=== PATIENT | male | born 1975 | race Caucasian/White ===

== ENCOUNTER → 2017-12-10 | Outpatient (CLI) | payer BC ==
[2015-07-14 08:27] VITALS: BP 139/92
[~2017-12-10] MED LIST: CYMBALTA20 MG; DILAUDID4 M1 PO; LAMICTAL; MS CONTIN 330 MG/TAB PO
[2017-12-10 17:22] LABS: HEMATOCRIT 45.2 % (42.0-52.0); HEMOGLOBIN 14.6 g/dL (13.5-18.0); MEAN PLATELET VOLUME 11.6 fl (7.4-10.4); RED BLOOD COUNT 4.99 M/mm3 (4.20-5.60); RED CELL DISTRIBUTION WIDTH 13.2 % (11.5-14.5); WHITE BLOOD COUNT 8.8 K/mm3 (4.8-10.8)
[2017-12-10 20:38] LABS: ALBUMIN 3.6 g/dL (3.5-5.0); BUN/CREATININE RATIO 21.8 (6.0-26.0); CALCIUM 8.4 mg/dL (8.4-10.2); POTASSIUM 3.7 mmol/L (3.6-5.0); TOTAL BILIRUBIN 0.3 mg/dL (0.2-1.3); TOTAL PROTEIN 7.7 g/dL (6.3-8.2)
== END ==
LOC: LAB 16:56
PROVIDERS: Family Medicine
DX: R06.00 Dyspnea, unspecified (principal); H93.8X3 Other specified disorders of ear, bilateral; R53.83 Other fatigue; M16.12 Unilateral primary osteoarthritis, left hip; Z86.39 Personal history of other endocrine, nutritional and metabolic disease

== ENCOUNTER → 2018-07-24 | Outpatient (CLI) | payer BC ==
[2015-07-14 08:27] VITALS: BP 139/92
== END ==
LOC: RAD 11:02
DX: N20.2 Calculus of kidney with calculus of ureter (principal); K76.0 Fatty (change of) liver, not elsewhere classified

== ENCOUNTER → 2018-08-05 | Outpatient (CLI) | payer BC ==
[2015-07-14 08:27] VITALS: BP 139/92
[2018-08-05 10:38] LABS: CALCIUM 8.7 mg/dL (8.4-10.2); POTASSIUM 3.9 mmol/L (3.6-5.0)
[2018-08-07 13:03] LABS: PTH,INTACT 60.4 pg/mL (6.6-88.9)
== END ==
LOC: LAB 09:49
PROVIDERS: Urology
DX: N20.0 Calculus of kidney (principal); R53.83 Other fatigue

== ENCOUNTER → 2020-05-27 | Outpatient (CLI) | payer BC ==
[2015-07-14 08:27] VITALS: BP 139/92
== END ==
LOC: LAB 19:19
DX: Z20.828 Contact with and (suspected) exposure to other viral communicable diseases (principal)